=== PATIENT | male | born 2005 | race Caucasian/White ===

== ENCOUNTER 2025-01-09 13:25 | Emergency (ER) | payer OTHER, SELFPAY ==
--- NOTE | ~2025-01-09 | CT_ITS ---
CT abdomen pelvis w con Ordering provider: Della Lagunas PA-C History: 19 years Male with . RLQ PAIN, n/v . Comparison: None. Technique: CT abdomen and pelvis with IV and without oral contrast. Automated exposure control and it erative reconstruction technique were employed. The dose-length product was 814.91 mGy-cm. 100 mL Omn ipaque 350 was given IV. Findings: VISUALIZED LOWER CHEST: Normal. UPPER ABDOMINAL ORGANS: Liver: Normal. Gallbladder: Normal. Spleen: Normal. Stomach/duodenum: Normal. Pancreas: Atrophic changes. Adrenals: Normal. Kidneys: Small hyperdense areas seen in the left kidney upper mid and lower pole which may be stones or early excretion of the contrast. Stone in the right upper ureter is seen which measures 4 mm. Right hydronephrotic changes seen with d elayed secretion of contrast in the right kidney compared to the left. PELVIC ORGANS: The bladder is underfilled with thickened wall. BOWEL AND MESENTERY: Colon: No evidence of diverticulitis. Normal appendix. Small Bowel: Normal. No obstruction. Peritoneum/mesentery: No free air or free fluid. No mesenteric lymphadenopathy. Small mesenteric lymp h nodes are noted. RETROPERITONEUM: Normal aorta. No retroperitoneal lymphadenopathy. MUSCULOSKELETAL: Superficial soft tissues: The superficial soft tissues are normal. Bones: Normal Spine. 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 IMPRESSION: 1. Stone in the right ureter with hydronephrotic changes of moderate degree. 2. No evidence of appendicitis, diverticulitis or intestinal obstruction. Reviewed, dictated and finalized at location A.
--- OUTSIDE RECORDS SUMMARY | 2025-01-09 13:27 | XMS_ITS | Clinical Summary ---
Author Organization [facility] Address [address] [place] [address] Care Team Providers Care Anodizer Name Role Phone Pavel Dupont MD Primary Care Provider [phone] Social History Tobacco Use Types Packs/Day Years Used Date Smoking Tobacco: Never Assessed Sex and Gender Information Value Date Recorded Sex Assigned at Not on file Legal Sex Male 8:54 AM CDT Gender Identity Not on file Sexual Orientation Not on file Plan of Treatment Upcoming Encounters Date Type Department Care Team ([facility] Contact Info) Description 03/05/2025 12:20 PM CDT Office Visit [facility] Family & Internal Medicine [id number] [place] [address] Pavel Dupont MD [address] [place] [address] [phone] Health Maintenance Due Date Last Done Comments Annual Physical 2008 HPV Vaccines (1 - Male 3-dos e series) 2020 Meningococcal B Vaccine (1 o f 2 - Standard) 2021 Hepatitis C 10/19/2023 COVID-19 Vaccine (1 - 2023-2 5 season) 2024 PHQ-2 (Physician [place]) 06/26/2024 DTaP, Tdap and Td Vaccines ( 1 - Tdap) 2024 Hepatitis B Vaccines (1 of 3 - 19+ 3-dose series) 2024 Meningococcal Vaccine Aged Out No armand killian eligible based on patient's age to complete this topic Pneumococcal Vaccine: Pediat rics (0 to 5 Years) and At-Risk Patients (6 to 49 Years) Aged Out No longer eligible b ased on patient's age to complete this topic RSV Immunizations Under 20 Months Aged Out No longer eligible based on patient's age to complete this topic Insurance Care Teams Anodizer Relationship Specialty Start Date End Date Pavel Dupont MD [address] [place] [id number] PCP - General INTERNAL MEDICINE 09/17/24
--- OUTSIDE RECORDS SUMMARY | 2025-01-09 13:27 | XMS_ITS | Referral Summary ---
Author Organization [facility] [address] Address [address] [place] [address] Care Team Providers Care Last Ironer Name Role Phone Unknown, Notinfile Primary Care Provider Unavail able Candido Lyle MD Unavailable Allergies No known active allergies Medications ibuprofen 200 mg tab/cap Take 2 tablet/caps ule (400 mg total) by mouth every 6 (six) hours as needed for pain Active Active Problems Problem Noted Date Diagnosed Date Forearm strain, right, initial encounter 024 Dysfunction of right rotator cuff 01/26/2023 Scapular dyskinesis 01/26/2023 Immunizations Immunization Administration Dates Next Due DTaP / Hep B / IPV 05/02/2007,02/17/2006, 006 DTaP / IPV 02/04/2011 DTaP 5 Pertussis 04/21/2006 HPV9 01/01/2019,01/24/2017 Hep A, Pediatric 10/09/2007,02/01/2007 Hep B, Adolescent or Pediatric 2005 Hib (PRP-T) 02/01/2007, 6,02/17/2006,12/23 Influenza, Quadrivalent, Spl it, Preservative Free, Intramuscular 03/16/2023 Influenza, Trivalent, IM (MDV) 03/24/2018 Influenza, Unspecified 02/15/2021 MMR 02/04/2011 MMRV 10/20/2006 Meningococcal A,C,W,Y-TT (Ak a Menquadfi) 03/16/2023 Meningococcal B, OMV (Bexsero) 03/16/2023 Meningococcal Conjugate (Menveo) 01/24/2017 Pneumococcal Conjugate 7-Valent 10/21/19 07,04/21/2006,02/17/2006,12/23 Rotavirus Pentavalent 04/21/2006,02/17/2006,11/26 Tdap 01/24/2017 Varicella 02/04/2011 Social History Tobacco Use Types Packs/Day Years Used Date Smoking Tobacco: Never Passive Smoke Exposure: Never Smokeless Tobacco: Never Tobacco Cessation:Counseling Given: Not Answered Sex and Gender Information Value Date Recorded Sex Assigned at Not on file 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 Gender Identity Not on file Sexual Orientation Not on file Last Filed Vital Signs Vital Sign Reading Time Taken Comments Blood Pressure 132/82 02/15/2024 3:45 PM CDT Pulse 63 02/15/2024 3:45 PM CDT Temperature 36.7 C (98.1 F) 02/15/2024 3:45 PM CDT Respiratory Rate 16 02/15/2024 3:45 PM CDT Oxygen Saturation 98% 02/15/2024 3:45 PM CDT Inhaled Oxygen Concentration - - Weight 112.9 kg (249 lb) 04/12/2024 8:30 AM CDT Height 180.3 cm (5' 11) 04/12/2024 8:30 AM CDT Body Mass Index 34.73 04/12/2024 8:30 AM CDT Body Mass Index Percentile 97.86% 04/12/2024 8:3 0 AM CDT Growth Chart: [facility] (Boys, 2-2 0 Years) Plan of Treatment Not on file Insurance [facility] CLAIMS [facility] CLAIMS [facility] CLAIMS [employer] CLAIMS Care Teams Last Ironer Relationship Specialty Start Date End Date Unknown, Notinfile PCP - General 02/15/24 Candido Lyle MD [address] [place] [address] Pediatrics 02/15/24
--- OUTSIDE RECORDS SUMMARY | 2025-01-09 13:27 | XMS_ITS | Clinical Summary ---
Author Organization [facility] Address [address] [facility] [place] [address] Care Team Providers Care Garment Liner Name Role Phone Candido Lyle MD Primary Care Provider [phone] Source Comments [facility],non-owned Affiliates and Associated Physician Practices is amultiple site organization consisting of ambulatory clinics and hospital sitesin [place], [place], [place] and [place]. This disclosure is being madepursuant to the Care Everywhere program and may not contain all information available regarding this patient. Last updated 18.[facility] Allergies No known active allergies Medications * Be aware that medications may not be up to date on this document. Alwaysverify current medications with the patient. ISOtretinoin 30 MG capsuleIndicati ons:Acne vulgaris TAKE 3 CAPSULES BY MOUTH EVERY DAY 60 capsule 08/23/2021 Active Active Problems Problem Noted Date Diagnosed Date Acne vulgaris 08/18/2021 High risk medications (not anticoagulants) long- term use 08/18/2021 Pain in right paraspinal region 03/10/2021 Injury of right knee 09/28/2017 Immunizations Immunization Administration Dates Next Due INFLUENZA VACCINE 02/15/2021 Social History Tobacco Use Types Packs/Day Years Used Date Smoking Tobacco: Never Smokeless Tobacco: Never Sex and Gender Information Value Date Recorded Sex Assigned at Not on file Legal Sex Male 12:26 PM CDT Gender Identity Not on file Sexual Orientation Not on file Last Filed Vital Signs Vital Sign Reading Time Taken Comments Blood Pressure - - Pulse - - Temperature - - Respiratory Rate - - Oxygen Saturation - - Inhaled Oxygen Concentration - - Weight 93.4 kg (206 lb) 06/30/2021 10:56 AM CELERY WRAPPER Height 179.4 cm (5' 10.63) 03/10/2021 9:06 AM C DT Body Mass Index - - Plan of Treatment Health Maintenance Due Date Last Done Comments HIV SCREENING 2020 HPV VACCINE (1 - Male 3-dose series) 2020 MENINGOCOCCAL (Group B) VACC INE SHARED DECISION-MAKING (1 of 2 - Standard) 2021 HEPATITIS C SCREENING 10/14/2023 COVID-19 VACCINE (1 - 2023-2 5 season) 2024 DEPRESSION SCREENING 06/26/2024 DTAP/TDAP/TD VACCINES (1 - Tdap) 2024 HEPATITIS B VACCINE (1 of 3 - 19+ 3-dose series) 2024 INFLUENZA VACCINE (#1) 2025 02/15/2021 ZOSTER VACCINE (1 of 2) 10/19/2055 HIB VACCINE Aged Out No longer eligi ble based on patient's age to complete this topic MENINGOCOCCAL GROUPS A/C/Y/W VACCINE Aged Out No longer eligible b ased on patient's age to complete this topic PNEUMOCOCCAL VACCINE Aged Out No long er eligible based on patient's age to complete this topic Insurance Care Teams Garment Liner Relationship Specialty Start Date End Date Candido Lyle MD [address] [facility] [place] [address] PCP - General Pediatrics 09/11/17
--- OUTSIDE RECORDS SUMMARY | 2025-01-09 13:27 | XMS_ITS | Clinical Summary ---
Author Organization [facility] [address] Address [address] [place] [phone] Care Team Providers Care Sheet Rock Taper Helper Name Role Phone Unknown, Notinfile Primary Care [...] Rotavirus Pentavalent 04/21/2006,02/17/2006,11/26 Tdap 01/24/2017 Varicella 02/04/2011 Family History Medical History Relation Name Comments No Known Problems Father Relation Name Status Comments Father Social History Tobacco Use Types Packs/Day Years Used Date Smoking Tobacco: Never Passive Smoke Exposure: Never Smokeless Tobacco: Never Tobacco Cessation:Counseling Given: Not Answered Sex and Gender Information Value Date Recorded Sex Assigned at Not on file 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 Gender Identity Not on file Sexual Orientation Not on file Obstetrics History Growth Chart Information Age Height Weight Irjreu-byx-hmaa th Percentile BMI Percentile Head Circum Head Circum Percentile Date 18 years 180.3 cm (5' 11) 112.9 kg (249 lb) 97.86%* 2023 18 years 185.4 cm (6' 1) 2023 17 years 183 cm (6' 0.05) 107 kg (235 lb 12.8 oz) 96.85%* 2023 17 years 182.9 cm (6') 109.5 kg (241 lb 6.4 oz) 97.29%* 2022 16 years 182.9 cm (6') 108.4 kg (239 lb) 97.42%* 2022 16 years 180.3 cm (5' 11) 100.2 kg (221 lb) 96.81%* 2021 * [facility] (Boys, 2-20 Years) Last Filed Vital Signs Vital Sign Reading [...] 04/12/2024 8:3 0 AM CDT Growth Chart: [facility] (Boys, 2-2 0 Years) Plan of Treatment Health Maintenance Due Date Last Done Comments Depression Screening 2005 Hepatitis C Screening 2005 Meningococcal B Vaccine (2 o f 2 - Bexsero SCDM 2-dose series) 09/14/2023 03/16/2023 Regular Well Visit/Exam 18-64 10/19/2023 Covid-19 Vaccine (3 - 2023-2 5 season) 2024 03/03/2021, 02/08/2021 Influenza Vaccine (Season Ended) 2025 03/16/2023, 02/15/2021, 03/24/2018 DTaP/Tdap/Td Vaccine (7 - Td or Tdap) 01/24/2027 01/24/2017, 02/04/2011, 05/02/2007, Additional history exists Pneumococcal vaccine <65 Completed 007, 04/21/2006, 02/17/2006, Additional history exists Hepatitis B Screening Completed 05/02/2007 , 02/17/2006, 2005, Additional history exists Varicella Vaccines Completed 02/04/2011, 10/20/2006 HPV Vaccines Completed 01/01/2019, 01/24/2017 Meningococcal Vaccine Completed 03/16/2023, 017 Insurance LOCATED WITHIN [facility] CLAIMS [facility] CLAIMS [facility] CLAIMS [employer] [place] CLAIMS Care Teams Sheet Rock Taper Helper Relationship Specialty Start Date End Date Unknown, Notinfile PCP - General 02/15/24 Candido Lyle MD [address] [place] [address] Pediatrics 02/15/24
--- NOTE | 2025-01-09 14:26 | ED_ITS ---
HPI - Abdominal Pain General Chief Complaint: Abdominal Pain Stated Complaint: R sided abd pain Time Seen by Provider: 01/09/25 13:30 Source: patient Mode of arrival: ambulatory Limitations: no limitations History of Present Illness HPI narrative: Patient is a 19-year-old male who presents the ED with report of right lower abdominal pain. Patient reports pain began a few hours ago after leaving the chiropractors office for a lower back adjustment. He reports having pain throughout his right lower abdomen, nausea, vomiting. Has had several episodes of emesis. Reports pain is worse with movement and driving over bumps on the road. Denies any known fevers. Reports slight diarrhea today. Denies constipation, rectal bleeding, difficulty urinating. Related Data Allergies Allergy/AdvReac Type Severity Reaction Status Date / Time No Known Allergies Allergy Unverified 11/17/16 17:28 Review of Systems 2 Review of Systems: All systems reviewed & are unremarkable except as noted in HPI. All systems reviewed & are unremarkable except as noted in HPI and below Exam 2 Narrative: GENERAL: Mildly uncomfortable appearing, well-nourished, non-toxic, in no acute distress. HEAD: Normocephalic, atraumatic. RESPIRATORY: Airway patent, respirations nonlabored. Clear to auscultation bilaterally, no rales, rhonchi, wheezing. CARDIOVASCULAR: Regular rate and rhythm without murmurs, rubs, or gallops. ABDOMINAL: Soft, tenderness in epigastric region, RLQ, suprapubic region. No rebound. No significant Rosving's sign. Nondistended. Normoactive BS. MUSCULOSKELETAL: Moves all extremities. No gross deformities. SKIN: Warm, dry, normal color. NEURO: A&O X3. Speech clear. Cranial nerves II-XII grossly intact. Steady gait. No ataxic movements. PSYCHIATRIC: Appropriate mood and affect. Normal interaction. Course Vital Signs Vital signs: Vital Signs Temperature 98.1 F 01/09/25 14:29 Pulse Rate 82 01/09/25 14:29 Respiratory Rate 01/09/25 14:29 Blood Pressure 116/78 01/09/25 14:29 Pulse Oximetry 100 01/09/25 14:29 Oxygen Delivery Room Air 01/09/25 14:29 Temperature 98.1 F 01/09/25 14:29 Pulse Rate 82 01/09/25 14:29 Respiratory Rate 20 01/09/25 14:29 Blood Pressure 116/78 01/09/25 14:29 Pulse Oximetry 100 01/09/25 14:29 Oxygen Delivery Room Air 01/09/25 14:29 MDM - Abdominal Pain MDM Narrative Medical decision making narrative: Patient presented to ED with right lower quadrant pain that began a few hours ago today. Vital signs stable upon arrival. Patient mildly uncomfortable appearing. Laboratory studies with mild leukocytosis of 11.8, neutrophil predominance, no bandemia. CMP with [employer] Representative 1.52. No records to compare to. Given fluids in the ED. UA with trace ketones, trace amount of RBC, no signs of infection. CT scan of abdomen/pelvis obtained and showing 4 mm right mid ureteral stone with mild hydronephrosis changes. No evidence of appendicitis. Consistent with clinical picture. Discussed lab and imaging findings with patient and family. Patient is feeling much better with supportive therapy. His pain is very well controlled at this time. Tolerating p.o.. Discussed kidney stone management. Feel he is safe for discharge home with Flomax, pain medicine, nausea medicine, strainer, outpatient urology follow-up. Advised to stay very well hydrated at home. Patient does admit to drinking lots of energy drinks. Advised to discontinue this. Given strict return precautions. He is in agreement with plan. Feels comfortable going home. Father in agreement. Discharged in stable condition. Medical Records Attestation: I reviewed the patient's medical records. Lab Data Attestation: I reviewed the patient's lab results. 01/09/25 14:32 01/09/25 14:32 Labs: Lab Results 01/09/25 01/09/25 Range/Units 14:32 15:18 WBC 11.8 H (4.5-10.0) K/mm3 RBC 5.61 (4.6-6.20) M/mm3 Hgb 16.7 (14.0-18.0) g/dL Hct 47.6 (42.0-52.0) % MCV 84.8 (80-100) fl MCH 29.8 (26-34) pg MCHC 35.1 (32-36) g/dl RDW 12.4 (11.5-14.5) % Plt Count 330 (150-375) k/mm3 MPV 10.2 (7.4-10.4) fl Immature Gran % (Auto) 0.3 (0-0.5) % Neut % (Auto) 75.4 H (45.5-73.1) % Lymph % (Auto) 17.1 L (18.3-44.2) % King % (Auto) 5.4 (2.6-8.5) % Eos % (Auto) 1.5 (0-4.4) % Baso % (Auto) 0.3 (0.2-1.2) % Lymph # (Auto) 2.02 (0.9-3.2) K/mm3 King # (Auto) 0.6 (0.1-0.6) K/mm3 Eos # (Auto) 0.2 (0-0.3) K/mm3 Baso # (Auto) 0.0 (0.0-0.1) K/mm3 Abs Immat Gran (auto) 0.04 H (0.00-0.031) K/mm3 Absolute Neuts (auto) 8.9 H (1.3-6.7) K/mm3 Absolute Nucleated RBC 0.000 (0.0-0.012) K/mm3 Nucleated RBC % 0.0 (0.0-0.2) % Sodium 141 (134-143) mmol/L Potassium 4.4 (3.4-5.0) mmol/L Chloride 107 (98-107) mmol/L Carbon Dioxide 24 (22-30) mmol/L Anion Gap 10 (4-12) mmol/L BUN 16 (8-21) mg/dL Creatinine 1.52 H (0.7-1.3) mg/dL Estim Creat Clear Calc Not Reportable Estimated GFR 59 (59 - ) Glucose 90 (65-110) mg/dL Calcium 10.2 (8.9-10.7) mg/dL Total Bilirubin 0.7 (0.2-1.3) mg/dL AST 51 (17-59) U/L ALT 70 H (6-50) U/L Alkaline Phosphatase 77 (58-237) U/L Total Protein 8.3 (6.3-8.6) g/dL Albumin 4.8 (3.7-5.6) g/dL Lipase 31 (23-300) U/L Urine Color Yellow (Yellow) Urine Appearance Clear (Clear) Urine pH 6.0 (5.0-9.0) Ur Specific Davis 1.021 (1.001-1.035) Urine Protein Negative (Negative) mg/dL Urine Glucose (UA) Negative (Negative) mg/dL Urine Ketones Trace H (Negative) mg/dL Ur Blood (Man) 2+ H (Negative) Urine Nitrate Negative (Negative) Urine Bilirubin Negative (Negative) Urine Urobilinogen 0.2 (<2.0) mg/dL Leukocyte Esterase Rfl Negative (Negative) DREW/UL Urine RBC 11-20 H (0-2) /hpf Urine WBC 0-5 (0-3) /hpf Ur Squamous Epith Cells None seen (Few) /hpf Urine Bacteria None seen /hpf Urine Casts 0-2 Imaging Data Attestation: I personally reviewed and interpreted this imaging study as follows: Radiologist's impression: ITS Impressions Abdomen/Pelvis CT 01/09/25 15:42 IMPRESSION: 1. Stone in the right ureter with hydronephrotic changes of moderate degree. 2. No evidence of appendicitis, diverticulitis or intestinal obstruction. Discharge Plan Discharge Clinical Impression: Calculus of proximal right ureter Patient Disposition: Home Condition: Stable Instructions: Antibiotic Form, Kidney Stones (ED), How to Strain Your Urine (ED) Additional Instructions: Take Flomax daily as prescribed. Continue Tylenol and Ibuprofen as needed for pain. Raymond as needed for more severe pain. Do not drive, operate heavy machinery, drink alcohol while on pain medication as this may cause sedation. Utilize Zofran for nausea. Stay very well hydrated. Strain your urine to collect stone. Follow-up with your primary care doctor and Urology for further evaluation if needed. Return to the ED if you experience worsening or severe pain, unable to keep down food/drink, fevers, uncontrollable nausea/vomiting, unable to urinate, significant blood in your urine, or any other symptoms of concern. Patient Language: Georgian Prescriptions: New hydrocodone-acetaminophen 5-325 mg tablet 1 tablet PO Q6H PRN (Reason: pain) Qty: 15 0RF tamsulosin [Flomax] 0.4 mg capsule 0.4 mg PO DAILY Qty: 7 0RF ondansetron 4 mg tablet,disintegrating 4 mg PO Q8H PRN (Reason: nausea and vomiting) Qty: 15 0RF Follow-up/Referrals: Candido Ferreira MD [Physician] - Derek Matthews MD [Physician] - (UROLOGY) Time of Disposition: 16:31
[2025-01-09 14:29] VITALS: BP 116/78; PULSE 82; RESP 20; TEMP 36.7; O2SAT 100
[2025-01-09] MEDS: SODIUM CHLORIDE 0.9% IV 1,000 ML 999 ML IV CONT (14:30)
[2025-01-09] MEDS: ONDANSETRON INJ 4 MG/2 ML VIAL IV PUSH (14:31)
[2025-01-09] MEDS: MORPHINE SULFATE (*CRX) 4 MG/ML INJ IV PUSH (14:33)
[2025-01-09 14:40] LABS: Hematocrit 47.6 % (42.0-52.0); Hemoglobin 16.7 g/dL (14.0-18.0); Immature Granulocyte Percent A 0.3 % (0-0.5); Lymphocytes Absolute Auto 2.02 K/mm3 (0.9-3.2); Mean Corpuscular HGB Conc 35.1 g/dl (32-36); Mean Corpuscular Hemoglobin 29.8 pg (26-34); Mean Corpuscular Volume 84.8 fl (80-100); Nucleated Red Blood Cells Absolute Auto 0.000 K/mm3 (0.0-0.012); Nucleated Red Blood Cells Perc 0.0 % (0.0-0.2); Platelet Count Result 330 k/mm3 (150-375); Red Blood Count 5.61 M/mm3 (4.6-6.20); White Blood Count 11.8 K/mm3 (4.5-10.0)
--- OUTSIDE RECORDS SUMMARY | 2025-01-09 14:48 | XMS_ITS | Clinical Summary ---
Author Organization [facility] Address [address] [place] [address] Care Team Providers Care Accounting Machine Operator Name Role Phone Pavel Dupont MD Primary Care Provider [phone] Social History Tobacco Use Types Packs/Day Years Used Date Smoking Tobacco: Never Assessed Sex and Gender Information Value Date Recorded Sex Assigned at Not on file Legal Sex Male 8:54 AM CDT Gender Identity Not on file Sexual Orientation Not on file Plan of Treatment Upcoming Encounters Date Type Department Care Team ([facility] Contact Info) Description 03/05/2025 12:20 PM CDT Office Visit [facility] Family & Internal Medicine [id number] [place] [address] Pavel Dupont MD [address] [place] [address] [phone] Health Maintenance Due Date Last Done Comments Annual Physical 2008 HPV Vaccines (1 - Male 3-dos e series) 2020 Meningococcal B Vaccine (1 o f 2 - Standard) 2021 Hepatitis C 10/19/2023 COVID-19 Vaccine (1 - 2023-2 5 season) 2024 PHQ-2 (Physician [facility]) 06/26/2024 DTaP, Tdap and Td Vaccines ( [...] to complete this topic Insurance Care Teams Accounting Machine Operator Relationship Specialty Start Date End Date Pavel Dupont MD [address] [place] [phone] PCP - General INTERNAL MEDICINE 09/17/24
--- OUTSIDE RECORDS SUMMARY | 2025-01-09 14:48 | XMS_ITS | Clinical Summary ---
Author Organization [facility] Address [address] [facility] [place] [place] [address] Care Team Providers Care Oil Expeller Name Role Phone Candido Lyle MD Primary Care Provider [phone] Source Comments [facility],non-owned Affiliates and Associated Physician Practices is amultiple site organization consisting of ambulatory clinics and hospital sitesin [place], [place], [place] and [place]. This disclosure is being madepursuant to the Care Everywhere program and may not contain all information available regarding this patient. Last updated 18.[facility] Allergies No known active allergies Medications * [...] 93.4 kg (206 lb) 06/30/2021 10:56 AM LAYBOY TENDER Height 179.4 cm (5' 10.63) 03/10/2021 9:06 [...] to complete this topic Insurance Care Teams Oil Expeller Relationship Specialty Start Date End Date Candido Lyle MD [address] [place] [address] PCP - General Pediatrics 09/11/17
[2025-01-09 14:51] LABS: Alanine Aminotransferase 70 U/L (6-50); Albumin Level 4.8 g/dL (3.7-5.6); Alkaline Phosphatase 77 U/L (58-237); Anion Gap 10 mmol/L (4-12); Aspartate Amino Transferase 51 U/L (17-59); Bilirubin,Total 0.7 mg/dL (0.2-1.3); Blood Urea Nitrogen 16 mg/dL (8-21); Calcium 10.2 mg/dL (8.9-10.7); Carbon Dioxide 24 mmol/L (22-30); Chloride 107 mmol/L (98-107); Estimated Glomerular Filt Rate 59; Glucose 90 mg/dL (65-110); Lipase 31 U/L (23-300); Potassium 4.4 mmol/L (3.4-5.0); Sodium 141 mmol/L (134-143); Total Protein 8.3 g/dL (6.3-8.6)
[2025-01-09 15:28] LABS: Add Urine Microscopic? YES; Appearance Urine Clear (Clear); Glucose Urine UA Negative (Negative); Leukocyte Esterase Ur Negative LEU/UL (Negative); Nitrate Urine Negative (Negative); Non Pathogenic Casts 0-2; Specific Grav Ur 1.021 (1.001-1.035)
[2025-01-09] MEDS: TAMSULOSIN HCL 0.4 MG CAPSULE PO (16:44)
== END 2025-01-09 16:50 | disposition home or self-care (01) ==
PROVIDERS: Emergency Provider Physician Assistant
DX: N20.1 Calculus of ureter (principal)
CPT/HCPCS: 36415; 74177; 80053; 81001; 83690; 85025; 96361; 96374; 96375; 99284; A9270; J2270; J2405; J7030; Q9967